=== PATIENT | female | born 1935 | race Hispanic/Latino ===

== ENCOUNTER 2023-06-16 12:21 | Emergency (ER) | payer MEDICARE, MEDICAID, SELFPAY ==
[2022-09-01 04:00] VITALS: BMI 30.2
[2023-06-16] VITALS (12 sets, daily range): BP systolic 112–131; BP diastolic 67–74; PULSE 79–101; RESP 16–18; TEMP 36.7; O2SAT 96–98; BMI 28.8
--- NOTE | 2023-06-16 12:30 | ED_ITS ---
HPI - General Adult General Chief complaint: Weakness Stated complaint: Generalized Weakness Time Seen by Provider: 06/16/23 12:23 History of Present Illness HPI narrative: 88-year-old female with history of atrial fibrillation, dementia, remote hx of cerebral aneurysm s/p clipping, coronary disease, congestive heart failure presents by EMS from home for generalized weakness. History obtained from daughter at bedside as patient is Romansh-speaking only. Daughter states that last night the patient began to urinate more frequently and today when she got up to use the restroom again she complained of ?dizziness? that she described as lightheadedness. EMS report unremarkable vitals on route. Related Data Home Medications Medication Instructions Recorded Confirmed [CO Q 10] 300 mg PO QDAY ##0 02/25/16 11/13/22 [VITAMIN B12 ] 250 mcg PO DAILY ##0 02/25/16 11/13/22 aspirin 81 mg tablet,delayed 81 mg PO Q DAY ##0 02/25/16 11/13/22 release pravastatin 40 mg tablet 40 mg PO HS ##0 02/25/16 11/13/22 VITAMIN D (Vitamin D3) 5,000 unit PO QDAY ##0 02/26/16 11/13/22 memantine 5 mg tablet 5 mg PO BID ##0 11/21/16 11/13/22 allopurinol 100 mg tablet 100 mg PO DAILY 11/10/21 11/13/22 albuterol 90 mcg/actuation aerosol 180 mcg inhalation PRN PRN Wheezing 08/03/22 11/13/22 inhaler metoclopramide HCl 5 mg tablet 5 mg PO TID 08/03/22 11/13/22 (Reglan) glucosamine HCl 500 mg-msm 83 1 tab PO DAILY 11/13/22 11/13/22 mg-chondroitin 400 mg tablet Previous Rx's Medication Instructions Recorded amiodarone 200 mg tablet 200 mg PO BIDWM #60 tabs 08/06/22 apixaban 5 mg tablet (Eliquis) 5 mg PO BID #60 tabs 08/06/22 metoprolol succinate 25 mg 25 mg PO BID #60 tabs 08/06/22 tablet,extended release 24 hr sennosides 8.6 mg tablet (senna) 17.2 mg (2 x 8.6 mg) PO BEDTIME 08/06/22 #30 tabs furosemide 20 mg tablet 10 mg (1/2 x 20 mg) PO Q OTHER DAY 09/01/22 #30 tabs potassium chloride 10 mEq 10 meq PO .every other day #30 caps 09/01/22 capsule,extended release cephalexin 500 mg capsule 500 mg PO Q12H #14 caps 06/16/23 Allergies Allergy/AdvReac Type Severity Reaction Status Date / Time celecoxib [From CELEBREX] AdvReac Severe bleeding Verified 11/13/22 10:38 atorvastatin [From LIPITOR] AdvReac Intermediate Muscle Pain Verified 11/13/22 10:38 Review of Systems Review of Systems Narrative: Otherwise negative, per daughter Patient History Medical History Atrial fibrillation CAD (coronary artery disease) CHF exacerbation Dementia History of stroke Hyperlipidemia Hypertension Hypothyroid Surgical History History of right knee surgery History of brain surgery Social History household members: family Smoking Status: Never smoker alcohol intake: never substance use type: does not use Smoking Status: Never smoker alcohol intake frequency: holidays/special occasions only Substance Use Type: does not use Exam Initial Vital Signs Initial Vital Signs: Vital Signs Pulse Rate 101 H 06/16/23 12:25 Respiratory Rate 18 06/16/23 12:25 Blood Pressure 120/69 06/16/23 12:25 Pulse Oximetry 96 06/16/23 12:25 Oxygen Delivery Method Room Air 06/16/23 12:25 Const: Awake, alert, no acute distress Eyes: PERRL, EOMI (when not focused on moving her eyes patient's L eye drifts laterally) ENT: Atraumatic, dentition normal, mucous membranes moist Cardiac: regular rate, regular rhythm RESP: unlabored, clear bilaterally, no wheezing GI: Atraumatic, soft, nontender Skin: Warm, Dry, intact, no rashes Neuro: Moves all extremities, no facial droop, speech normal per daughter Course Orders Ordered: Discontinued Medications Ceftriaxone Sodium (Ceftriaxone 2,000 Mg Vial) 1,000 mg IM NOW ONE Stop: 06/16/23 18:22 Last Admin: 06/16/23 18:28 Dose: 1,000 mg Documented By: RUTH Ceftriaxone Sodium 1,000 mg/ (Sodium Chloride) 100 mls @ 200 mls/hr IV NOW ONE Stop: 06/16/23 18:19 Last Admin: 06/16/23 18:21 Dose: Not Given Documented By: RUTH Lidocaine HCl (Lidocaine 1% (Pf) 5 Ml) 4.2 ml INJ NOW ONE Stop: 06/16/23 18:22 Last Admin: 06/16/23 18:28 Dose: 4.2 ml Documented By: RUTH Vital Signs Vital signs: Vital Signs - 8 hr 06/16/23 12:25 06/16/23 12:25 06/16/23 12:29 Temperature 98.0 F Pulse Rate 101 H 99 H Respiratory Rate 18 18 Blood Pressure 120/69 120/69 Pulse Oximetry 96 96 Oxygen Delivery Method Room Air Room Air 06/16/23 12:30 06/16/23 12:30 06/16/23 13:00 Temperature Pulse Rate 96 H 100 H Respiratory Rate 18 Blood Pressure 122/69 Pulse Oximetry 97 97 Oxygen Delivery Method Room Air 06/16/23 13:30 06/16/23 13:33 06/16/23 13:33 Temperature Pulse Rate 93 H 94 H Respiratory Rate 16 Blood Pressure 123/72 Pulse Oximetry 97 97 Oxygen Delivery Method 06/16/23 14:00 06/16/23 14:00 06/16/23 14:30 Temperature Pulse Rate 97 H Respiratory Rate Blood Pressure 130/71 124/74 Pulse Oximetry 96 Oxygen Delivery Method 06/16/23 14:30 06/16/23 15:00 06/16/23 15:00 Temperature Pulse Rate 96 H 98 H Respiratory Rate Blood Pressure 118/68 Pulse Oximetry 97 98 Oxygen Delivery Method 06/16/23 15:30 06/16/23 15:30 06/16/23 16:29 Temperature Pulse Rate 98 H 86 Respiratory Rate Blood Pressure 112/71 Pulse Oximetry 98 Oxygen Delivery Method 06/16/23 16:30 06/16/23 16:30 Temperature Pulse Rate 79 Respiratory Rate Blood Pressure 131/67 Pulse Oximetry 98 Oxygen Delivery Method Room Air Medical Decision Making Differential Diagnosis Differential Diagnosis: UTI, weakness, hyponatremia Lab Data 06/16/23 13:25 06/16/23 13:25 Labs: Lab Results 06/16/23 06/16/23 Range/Units 13:25 15:00 WBC 8.8 (4.5-11.0) X10^3/uL RBC 4.85 (4.0-5.2) X10^6/uL Hgb 14.7 (12.0-16.0) g/dL Hct 44.9 (36-46) % MCV 92.4 (80-100) fL MCH 30.3 (26-34) PG MCHC 32.8 (30-36) % RDW 16.0 H (11.6-14.8) % Plt Count 207 (150-400) X10^3/uL Neut % (Auto) 72.7 (50-75) % Lymph % (Auto) 15.0 L (25-40) % [place] % (Auto) 9.7 (3-14) % Eos % (Auto) 1.8 L (2-4) % Baso % (Auto) 0.8 (0-2) % Neut # (Auto) 6400 (9431-7079) /uL Lymph # (Auto) 1300 (7615-1327) /uL [place] # (Auto) 900 (0-900) /uL Eos # (Auto) 200 (0-450) /uL Baso # (Auto) 100 (0-100) /uL Sodium 136 L (137-145) mmol/L Potassium 5.1 (3.4-5.1) mmol/L Chloride 103 (98-107) mmol/L Carbon Dioxide 26 (22-32) mmol/L BUN 24 H (7-17) mg/dL Creatinine 0.99 (0.52-1.04) mg/dL Estimated GFR 55 L (>60) mL/min BUN/Creatinine Ratio 24.2 H (6-22) Glucose 81 (80-110) mg/dL Calcium 9.6 (8.4-10.2) mg/dL Total Bilirubin 0.9 (0.2-1.3) mg/dL AST 41 H (14-36) IU/L ALT 33 (<35) IU/L Alkaline Phosphatase 77 (38-126) U/L Total Protein 7.2 (6.3-8.2) g/dL Albumin 3.8 (3.5-5.0) g/dL Globulin 3.4 (1.7-4.1) g/dL Albumin/Globulin Ratio 1.1 (1.0-2.8) Urine Color Yellow Urine Appearance Sl cloudy Urine pH 7.0 (4.5-8.0) Ur Specific [place] 1.010 (1.000-1.035) Urine Protein Negative (Negative) Urine Glucose (UA) Negative (Negative) g/dL Urine Ketones Negative (NEGATIVE) Urine Occult Blood Trace-intact (Negative) Urine Nitrate Negative (Negative) Urine Bilirubin Negative (NEGATIVE) Urine Urobilinogen 0.2 (0.2) E.U./dL Ur Leukocyte Esterase 3+ H (NEGATIVE) Urine RBC 0-1/hpf (0-5/HPF) Urine WBC 10-30/hpf H (0-5/HPF) Ur Squamous Epith Cells 0-1 /hpf (0-5/HPF) Urine Bacteria Many (>30) H (None) Ur Culture Indicated? Specimen cultured Vol Urine Centrifuged 10ml (spun) MDM Narrative Medical decision making narrative: Well-appearing patient with lightheadedness and urinary frequency since this morning. Daughter called attention to a left eye gaze deviation. Patient has intact extraocular movements, this deviation appears to be when patient stops focusing on a distant object. Daughter states she only realize this is morning. There were no other focal deficits on exam. Given patient's previous history of aneurysm clipping daughter states that she has not able to have MRI. Laboratory work is reviewed, unremarkable. Patient does have urinary tract infection with significant bacteriuria and leukocyte esterase. CT shows stable old infarcts, CT angio is unchanged from prior. Patient is already on aspirin and Eliquis for her coronary disease. Based on single deficit of the left eye deviation unlikely to be another stroke. In addition patient is unable to receive MRI. Daughter states that patient has had an echocardiogram within the last 6 months that was reported to be normal. Daughter was counseled to have the patient continue her Eliquis and aspirin. 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 Strict PCP follow up advised. Discharge Plan Departure Patient Disposition: Home Clinical Impression: Acute UTI, Light-headed Instructions: DI for Urinary Tract Infection (UTI) Prescriptions: New cephalexin 500 mg capsule 500 mg PO Q12H Qty: 14 0RF No Action aspirin 81 MG tablet,delayed release (DR/EC) 81 mg PO Q DAY Qty: 0 [CO Q 10] 300 mg PO QDAY Qty: 0 [VITAMIN B12 ] 250 mcg PO DAILY Qty: 0 pravastatin 40 MG tablet 40 mg PO HS Qty: 0 VITAMIN D (Vitamin D3) 5,000 unit PO QDAY Qty: 0 memantine 5 MG tablet 5 mg PO BID Qty: 0 glucosamine [id number] 500-83-400 mg tablet 1 tab PO DAILY Rx Instructions: administer with a meal allopurinol 100 mg Tablet 100 mg PO DAILY albuterol 90 mcg/actuation Aerosol 180 mcg INHALATION PRN PRN (Reason: Wheezing) metoclopramide HCl [Reglan] 5 mg Tablet 5 mg PO TID sennosides [senna] 8.6 mg Tablet 17.2 mg PO BEDTIME Qty: 30 0RF amiodarone 200 mg Tablet 200 mg PO BIDWM Qty: 60 0RF metoprolol succinate 25 mg Tablet Extended Release 24 Hr 25 mg PO BID Qty: 60 0RF Eliquis 5 mg Tablet 5 mg PO BID Qty: 60 0RF furosemide 20 mg tablet 10 mg PO Q OTHER DAY Qty: 30 0RF potassium chloride 10 mEq capsule, extended release 10 meq PO .every other day Qty: 30 0RF Referrals: Starr Duggan DO [Primary Care Provider] - Stand Alone Forms: Patient Portal/API
--- NOTE | 2023-06-16 12:30 | DI.RAD.S_ITS ---
PROCEDURE: XR CHEST 1V INDICATIONS: GEN WEAKNESS/LIGHTHEADED TECHNIQUE: One view of the chest was acquired. COMPARISON: [facility], CR, XR CHEST 1V, 11/29/2022, 17:57. FINDINGS: Surgical changes and devices: None. Lungs and pleura: Lungs are clear. No pleural effusions or pneumothorax. Mediastinum: Mediastinal contours appear normal. Heart size is normal. Atherosclerotic vascular calcification noted in the aortic arch. Bones and chest wall: No suspicious bony lesions. Overlying soft tissues appear unremarkable. IMPRESSION: No acute cardiopulmonary abnormality is seen. Approved by: Sherman Mobley M.D. on 06/16/2023 at 13:02
[2023-06-16 13:40] LABS: Add Manual Diff / Slide Review NO; Basophils Absolute Auto 100 /uL (0-100); Basophils Percent Auto 0.8 % (0-2); Eosinophils Absolute Auto 200 /uL (0-450); Eosinophils Percent Auto 1.8 % (2-4); Hematocrit 44.9 % (36-46); Hemoglobin 14.7 g/dL (12.0-16.0); Lymphocytes Absolute Auto 1300 /uL (1100-4500); Mean Corpuscular HGB Conc 32.8 % (30-36); Mean Corpuscular Hemoglobin 30.3 PG (26-34); Mean Corpuscular Volume 92.4 fL (80-100); Monocytes Absolute Auto 900 /uL (0-900); Monocytes Percent Auto 9.7 % (3-14); Neutrophils Absolute Auto 6400 /uL (1500-7000); Neutrophils Percent Auto 72.7 % (50-75); Platelet Count 207 X10^3/uL (150-400); Red Blood Cell Count 4.85 X10^6/uL (4.0-5.2); White Blood Cell Count 8.8 X10^3/uL (4.5-11.0)
[2023-06-16 13:48] LABS: Alanine Aminotransferase 33 IU/L (<35); Albumin 3.8 g/dL (3.5-5.0); Albumin Globulin Ratio 1.1 (1.0-2.8); Alkaline Phosphatase 77 U/L (38-126); Aspartate Aminotransferase 41 IU/L (14-36); BUN Creatinine Ratio 24.2 (6-22); Bilirubin Total 0.9 mg/dL (0.2-1.3); Blood Urea Nitrogen 24 mg/dL (7-17); Calcium 9.6 mg/dL (8.4-10.2); Carbon Dioxide 26 mmol/L (22-32); Chloride 103 mmol/L (98-107); Estimated Glomerular Filt Rate 55 mL/min (>60); Globulin 3.4 g/dL (1.7-4.1); Glucose 81 mg/dL (80-110); HEMOLYSIS 19 (0-50); Potassium 5.1 mmol/L (3.4-5.1); Sodium 136 mmol/L (137-145); Total Protein 7.2 g/dL (6.3-8.2)
--- NOTE | 2023-06-16 14:23 | PC.NURSE ---
Multiple Iv attempts by RN's . unable to get an IV in. lab called.
[2023-06-16 15:19] LABS: Urine Volume 10mL (spun)
[2023-06-16 15:20] LABS: Appearance Urine UA SL CLOUDY; Bilirubin Urine UA NEGATIVE (NEGATIVE); Color Urine UA YELLOW; Glucose Urine UA NEGATIVE (Negative); Ketones Urine UA NEGATIVE (NEGATIVE); Leukocyte Esterase Urine UA 3+ (NEGATIVE); Nitrite Urine UA NEGATIVE (Negative); Occult Blood Urine UA TRACE-INTACT (Negative); Protein Urine UA NEGATIVE (Negative); Urobilinogen Urine UA 0.2 E.U./dL (0.2)
[2023-06-16 15:29] LABS: Bacteria Urine Many (>30); Culture Indicated Urine Specimen Cultured; RBC Urine 0-1/HPF (0-5/HPF); Squamous Epithelial Cell Urine 0-1 /HPF (0-5/HPF); WBC Urine 10-30/HPF (0-5/HPF)
--- NOTE | 2023-06-16 15:39 | DI.CT.S_ITS ---
PROCEDURE: CT ANGIO HEAD AND NECK INDICATIONS: L EYE LATERAL DRIFT TECHNIQUE: After the administration of intravenous contrast, 1 mm thick sections acquired from the aortic arch through the [place]. MIP reformats of the arterial vasculature were utilized. For radiation dose reduction, the following was used: automated exposure control, adjustment of mA and/or kV according to patient size. COMPARISON: [facility], CT, CT ANGIO HEAD AND NECK, 08/03/2022, 16:25. FINDINGS: Cerebral CT Angiogram: Internal carotid arteries: Dense atherosclerotic calcification in both cavernous ICA results in 60 percent stenosis on the left Anterior cerebral arteries: Right anterior aneurysm clip noted in good position. No evidence recurrence or residual aneurysm Middle cerebral arteries: 6 x 3 mm aneurysm arises from the left MCA bifurcation, similar to the prior. Posterior cerebral arteries: Unremarkable. No significant stenosis. No occlusion. No aneurysm. Basilar artery: Unremarkable. No significant stenosis. No occlusion. No aneurysm. Vertebral arteries: Unremarkable as visualized. Dural venous sinuses: Unremarkable given phase of enhancement. Other: Arterial phase brain parenchyma is unremarkable. Neck CT Angiogram: Internal carotid arteries: Calcified atherosclerotic plaque results in 60 percent stenosis of the left proximal ICA by NASCET criteria. no stenosis on the right Common carotid arteries: Unremarkable. No significant stenosis. No dissection or occlusion. External carotid arteries: Unremarkable. No occlusion. Vertebral arteries: Unremarkable. No significant stenosis. No dissection or occlusion. Left vertebral artery dominance Other: Right frontal craniotomy. Motion artifact limits assessment Aortic Arch and Mediastinum: Dense atherosclerotic vascular calcification noted involving the aortic arch and origins of the great vessels IMPRESSION: 1. Stable CT angiogram of the head and neck. No evidence of large vessel occlusion. 2. Atherosclerotic 60 percent left proximal ICA stenosis. 3. Stable left MCA 6 mm aneurysm and right JOCE aneurysm clip Approved by: Sherman Mobley M.D. on 06/16/2023 at 16:30
--- NOTE | 2023-06-16 15:39 | DI.CT.S_ITS ---
PROCEDURE: CT HEAD/BRAIN WO CON INDICATIONS: L EYE LATERAL DRIFT TECHNIQUE: Noncontrast 4.5 mm thick angled axial sections acquired from the foramen magnum to the vertex, with coronal and sagittal reformats. For radiation dose reduction, the following was used: automated exposure control, adjustment of mA and/or kV according to patient size. COMPARISON: [facility], CT, CT HEAD/BRAIN WO CON, 08/03/2022, 15:21. FINDINGS: Image quality: Diagnostic. CSF spaces: Basal cisterns are patent. No extra-axial fluid collections. Ventricles are normal in size and shape. Brain: Atrophy and multifocal white matter chronic ischemic change present. 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 No intracranial hemorrhage Skull and face: Calvarium and visualized facial bones are intact, without suspicious lesions. Right frontal craniotomy Sinuses: Visualized sinuses and mastoids are clear. IMPRESSION: No acute intracranial hemorrhage mass effect. 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 on 06/16/2023 at 16:40
[2023-06-16] MEDS: LIDOCAINE 1% (PF) 5 ML 4.2 ML INJ (18:28)
[2023-06-16] MEDS: cefTRIAXone 2,000 MG VIAL 1000 MG IM (18:28)
== END 2023-06-16 18:43 | disposition home or self-care (01) ==
PROVIDERS: Emergency Provider Emergency Medicine; PCP Family Medicine
DX: N39.0 Urinary tract infection, site not specified (principal); R42 Dizziness and giddiness; H53.9 Unspecified visual disturbance; R07.9 Chest pain, unspecified
CPT/HCPCS: 36415; 70450; 70496; 70498; 71045; 80053; 81001; 85025; 87077; 87086; 87186; 93005; 93010; 96372; 99284; J0696; Q9967